=== PATIENT | male | born 1995 | race Caucasian/White ===

== ENCOUNTER 2019-06-29 16:31 | Emergency (ER) | payer SELFPAY ==
[~2019-06-29] VITALS: Ht 172.7 cm; Wt 100.2 kg
[~2019-06-29 16:31] MED LIST: ACET500C5 PO; AMOX500C2 PO; BACL10TA PO; CIPR500T4 PO; DICY20TA59 PO; HYDR-3498 PO; HYDR-4011 PO; IBUP-1542 PO; IBUP-1561 PO; METR500T PO; ONDA4TAB14 PO; PHEN177S43 MT
[2019-06-29 16:36] VITALS: BP 130/65; PULSE 66; RESP 20; Ht 172.7 cm; Wt 100.2 kg
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
== END 2019-06-29 16:55 | disposition home or self-care (01) ==
LOC: FTE 16:31 → E/R 16:55
DX: S23.3XXA Sprain of ligaments of thoracic spine, initial encounter (principal); V49.49XA Driver injured in collision with other motor vehicles in traffic accident, initial encounter
CPT/HCPCS: 99283